=== PATIENT | female | born 1955 | race Caucasian/White ===

== ENCOUNTER 2017-10-24 17:22 | Emergency (ER) | payer OTHER ==
[~2017-10-24] VITALS: Ht 157.5 cm; Wt 89.0 kg
[2017-10-24 17:35] VITALS: BP 139/76; PULSE 75; RESP 16; TEMP 97.8; O2SAT 98
[2017-10-24] MEDS ORDERED: LOSA50TA PO (17:40)
[2017-10-24] MEDS ORDERED: ZANT150T2 PO (17:40)
[2017-10-24] MEDS ORDERED: LEVO.1 PO (17:40)
[2017-10-24] MEDS ORDERED: ROSU10 PO (17:40)
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
[2017-10-24 19:04] VITALS: BP 164/82; PULSE 68; RESP 15; O2SAT 96
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
[2017-10-24] MEDS ORDERED: CYCL10TA PO (19:42)
[2017-10-24] MEDS ORDERED: CODE30TA2 PO (19:42)
[2017-10-24] MEDS ORDERED: TRAM50 PO (19:55)
== END 2017-10-24 20:03 | disposition home or self-care (01) ==
LOC: NEPD 17:22
DX: G44.209 Tension-type headache, unspecified, not intractable (principal); S16.1XXA Strain of muscle, fascia and tendon at neck level, initial encounter; E03.9 Hypothyroidism, unspecified; E78.00 Pure hypercholesterolemia, unspecified; I10 Essential (primary) hypertension; F41.9 Anxiety disorder, unspecified; Z79.899 Other long term (current) drug therapy; Z88.2 Allergy status to sulfonamides; V49.40XA Driver injured in collision with unspecified motor vehicles in traffic accident, initial encounter
CPT/HCPCS: 70450; 72125; 99285